=== PATIENT | male | born 1960 | race Caucasian/White ===

== ENCOUNTER 2024-12-29 10:46 | Emergency (ER) | payer OTHER, SELFPAY ==
--- NOTE | ~2024-12-29 | CT_ITS ---
Non-contrast CT scan of the Abdomen and Pelvis Clinical indication: Left inguinal pain Technique: 2.5 mm axial scans were obtained through the abdomen and pelvis without intravenous or or al contrast. Dose reduction technique was used on this scan by utilizing automated exposure control a nd iterative reconstruction technique. The dose-length product (DLP) was 684.85 mGy-cm. Findings: Images through the lung bases reveal 3 mm right lower lobe nodule (axial image 15). There is no evidence of renal or ureteral calculi. The kidneys and the ureters are nondilated. The liver, spleen, pancreas, gallbladder, and adrenals appear normal. There is no aortic aneurysm. There is no evidence of bowel obstruction. Images through the pelvis were performed. There is no evidence of ascites or lymphadenopathy. Urinary bladder unremarkable. No pelvic mass seen. No ascites. Impression: No significant abnormality. 3 mm right lower lobe pulmonary nodule is most likely benign. Consider one-year follow-up exam for a high-risk patient. Reviewed, dictated and finalized at [facility]. Impression: No significant abnormality. 3 mm right lower lobe pulmonary nodule is most likely benign. Consider one-year follow-up exam for a high-risk patient.
--- NOTE | ~2024-12-29 | US_ITS ---
Testicular ultrasound with doppler. Indication: Left testicular pain. Technique: Real-time sonography the scrotum was performed. Color flow Doppler and Doppler spectral an alysis were performed. Findings: The testes are homogeneous in echotexture bilaterally. There is no evidence of an intrates ticular mass. The right testis measures 2.3 x 1.6 x 2.5 cm and the left 2.1 x 1.1 x 2.4 cm. There is color-flow seen to both testes. Arterial and venous spectral waveforms are seen in both testes. There is no sonographic evidence of torsion. The head of the epididymis is visualized bilaterally and is within normal limits. Suggestion of increased color-flow and soft tissues about the left testicle and left epididymis without discrete mass or fluid collection. Impression: Suggestion of hyperemia in the soft tissues about the left testicle and left epididymis without fluid collection or discrete mass, nonspecific. No distinct evidence for orchitis/epididymitis. No testicular mass or torsion. Reviewed, dictated and finalized at location . Impression: Suggestion of hyperemia in the soft tissues about the left testicle and left ep ididymis without fluid collection or discrete mass, nonspecific. No distinct ev idence for orchitis/epididymitis. No testicular mass or torsion.
[2024-12-29 11:05] VITALS: BP 142/90; PULSE 64; RESP 16; TEMP 36.6; O2SAT 98
--- NOTE | 2024-12-29 11:32 | ED.GENADULT ---
HPI - General Adult General Chief complaint: Urogenital-Male Stated complaint: L testicle pain Time Seen by Provider: 12/29/24 10:59 History of Present Illness HPI narrative: Patient is a 64-year-old gentleman who presents emergency department chief complaint of left testicle pain. Patient reports for the last several days he has had discomfort in his left testicle reports there may be a little bit of swelling reports that it does radiate into the left lower quadrant Related Data Home Medications ?Medication ?Instructions ?Recorded ?Confirmed ?Last Taken ?Type dietary supplement cap PO 02/22/20 Unknown History nutritional supplement-fiber oral 2 each PO DAILY 02/22/20 Unknown History liquid omega 3,5,6,7,9 combination no.1 cap PO 02/22/20 Unknown History 700 mg-salmon oil 1,500 mg capsule (Complete Bondurant) Allergies Allergy/AdvReac Type Severity Reaction Status Date / Time No Known Allergies Allergy Mild Verified 12/29/24 10:46 Review of Systems Review of Systems: A 10 system review of systems was completed on the patient and is negative except for what is stated in the HPI. Nursing and ancillary documentation was reviewed. [facility] Past Medical History Medical History (Updated 12/29/24 @ 13:10 by Luigi Belle MD) Biceps muscle tear (~2010) right arm Dyslipidemia Abdominal wall lump Hx of colonic polyp (~2017) Surgical History Surgical History History of tonsillectomy and adenoidectomy Family History Family History Other Asthma Diabetes mellitus Hypertension Social History Social History Smoking status: Never smoker Second hand tobacco smoke exposure: No Alcohol intake: current Alcohol use details: consumes 3 beers weekly Substance use: never Substance use type: does not use Gender identity (if verbalized by the patient): Male Exam Narrative: GENERAL: Well-appearing, well-nourished, and in no acute distress. HEAD: Normocephalic, atraumatic. EYES: PERRLA and EOMI. ENT: Nares clear, no rhinorrhea or epistaxis. Mucous membranes moist. NECK: Supple. CHEST: Clear to auscultation. No respiratory distress. HEART: Regular rate and rhythm. No murmur heard. Normal peripheral pulses. ABDOMEN: Soft, nontender, nondistended, normal active bowel sounds. : Slight tenderness to palpation in the left testicle EXTREMITIES: Normal range of motion. No edema. SKIN: Warm, dry, no rash. NEURO: No focal deficits. Alert and oriented x3. PSYCH: Normal mood and affect. Course Vital Signs Vital signs: Vital Signs Temperature 36.6 C 12/29/24 11:05 Pulse Rate 64 12/29/24 11:05 Respiratory Rate 16 12/29/24 11:05 Blood Pressure 142/90 H 12/29/24 11:05 Pulse Oximetry 98 12/29/24 11:05 Oxygen Delivery Room Air 12/29/24 11:05 Temperature 36.6 C 12/29/24 11:05 Pulse Rate 64 12/29/24 11:05 Respiratory Rate 16 12/29/24 11:05 Blood Pressure 142/90 H 12/29/24 11:05 Pulse Oximetry 98 12/29/24 11:05 Oxygen Delivery Room Air 12/29/24 11:05 Medical Decision Making [facility] Narrative Medical decision making narrative: Differential diagnosis includes epididymal orchitis, testicular torsion, ureterolithiasis, hernia Ultrasound showed evidence of epididymal orchitis Laboratory studies were within normal limits CT scan showed no evidence of hernia or ureterolithiasis Patient is given 500 mg of Rocephin IM and will be started on Levaquin Vital Signs Vital Signs: Vital Signs Temperature 36.6 C 12/29/24 11:05 Pulse Rate 64 12/29/24 11:05 Respiratory Rate 16 12/29/24 11:05 Blood Pressure 142/90 H 12/29/24 11:05 Pulse Oximetry 98 12/29/24 11:05 Oxygen Delivery Room Air 12/29/24 11:05 Temperature 36.6 C 12/29/24 11:05 Pulse Rate 64 12/29/24 11:05 Respiratory Rate 16 12/29/24 11:05 Blood Pressure 142/90 H 12/29/24 11:05 Pulse Oximetry 98 12/29/24 11:05 Oxygen Delivery Room Air 12/29/24 11:05 Lab Data 12/29/24 11:23 12/29/24 11:23 Labs: Lab Results 05/01/25 Range/Units 11:23 WBC 7.2 (4.5-10.0) K/mm3 RBC 5.87 (4.6-6.20) M/mm3 Hgb 17.8 (14.0-18.0) g/dL Hct 52.1 H (42.0-52.0) % MCV 88.8 (80-100) fl MCH 30.3 (26-34) pg MCHC 34.2 (32-36) g/dl RDW 13.4 (11.5-14.5) % Plt Count 200 (150-375) k/mm3 MPV 8.9 (7.4-10.4) fl Immature Gran % (Auto) 0.1 (0-0.5) % Neut % (Auto) 70.7 (45.5-73.1) % Lymph % (Auto) 19.5 (18.3-44.2) % Amador % (Auto) 5.8 (2.6-8.5) % Eos % (Auto) 3.2 (0-4.4) % Baso % (Auto) 0.7 (0.2-1.2) % Lymph # (Auto) 1.41 (0.9-3.2) K/mm3 Amador # (Auto) 0.4 (0.1-0.6) K/mm3 Eos # (Auto) 0.2 (0-0.3) K/mm3 Baso # (Auto) 0.1 (0.0-0.1) K/mm3 Abs Immat Gran (auto) 0.01 (0.00-0.031) K/mm3 Absolute Neuts (auto) 5.1 (1.3-6.7) K/mm3 Absolute Nucleated RBC 0.000 (0.0-0.012) K/mm3 Nucleated RBC % 0.0 (0.0-0.2) % Sodium 139 (137-145) mmol/L Potassium 4.2 (3.4-5.0) mmol/L Chloride 101 (98-107) mmol/L Carbon Dioxide 32 H (22-30) mmol/L Anion Gap 6 (4-12) mmol/L BUN 14 (9-20) mg/dL Creatinine 1.19 (0.7-1.3) mg/dL Estim Creat Clear Calc 62 ml/min Estimated GFR > 60 (59 - ) Glucose 92 (65-110) mg/dL Lactic Acid 1.0 (0.7-2.0) mmol/L Calcium 9.2 (8.4-10.2) mg/dL Magnesium 2.2 (1.6-2.3) mg/dL Total Bilirubin 1.0 (0.2-1.3) mg/dL AST 28 (17-59) U/L ALT 24 (6-50) U/L Alkaline Phosphatase 61 (38-126) U/L Total Protein 7.0 (6.3-8.2) g/dL Albumin 4.4 (3.5-5.1) g/dL Lipase 93 (23-300) U/L Urine Color Yellow (Yellow) Urine Appearance Clear (Clear) Urine pH 6.5 (5.0-9.0) Ur Specific Holcomb 1.007 (1.001-1.035) Urine Protein Negative (Negative) mg/dL Urine Glucose (UA) Negative (Negative) mg/dL Urine Ketones Negative (Negative) mg/dL Ur Blood (Man) Negative (Negative) Urine Nitrate Negative (Negative) Urine Bilirubin Negative (Negative) Urine Urobilinogen 0.2 (<2.0) mg/dL Leukocyte Esterase Rfl Negative (Negative) SIMONA/UL Discharge Plan Discharge Clinical Impression: Acute epididymo-orchitis Patient Disposition: Home Condition: Stable Instructions: Antibiotic Form, Epididymo-Orchitis (ED) Patient Language: Eritrean Prescriptions: New levofloxacin 500 mg tablet 500 mg PO DAILY 10 Days Qty: 10 0RF No Action Complete Bondurant 700-1,500 mg-mg capsule PO Rx Instructions: 1725mg total-omega, 1100mg omgeg-3s, 300mg Levagen nutritional supplement-fiber Liquid 2 each PO DAILY Rx Instructions: Orchard blend, garden blend, wright blend- 2 tablets once daily dietary supplement Capsule PO Rx Instructions: Slimvance, once daily simvastatin 10 mg tablet 10 mg PO DAILY Qty: 90 0RF methylprednisolone [Medrol (Alejandro)] 4 mg tablets,dose pack See Rx Instructions PO PER PKG DIR Qty: 21 0RF Rx Instructions: PO PER PKG DIR triamcinolone acetonide 0.5 % cream 1 applic topical BID Qty: 15 0RF Follow-up/Referrals: Dariana Rutledge MD [Primary Care Provider] - Oscar Munson MD [Physician] - Time of Disposition: 13:11
[2024-12-29 11:33] LABS: Basophils Absolute Auto 0.1 K/mm3 (0.0-0.1); Basophils Percent Auto 0.7 % (0.2-1.2); Eosinophils Absolute Auto 0.2 K/mm3 (0-0.3); Eosinophils Percent Auto 3.2 % (0-4.4); Hematocrit 52.1 % (42.0-52.0); Hemoglobin 17.8 g/dL (14.0-18.0); Immature Granulocyte Absolute 0.01 K/mm3 (0.00-0.031); Immature Granulocyte Percent A 0.1 % (0-0.5); Lymphocytes Absolute Auto 1.41 K/mm3 (0.9-3.2); Lymphocytes Percent Auto 19.5 % (18.3-44.2); Mean Corpuscular HGB Conc 34.2 g/dl (32-36); Mean Corpuscular Hemoglobin 30.3 pg (26-34); Mean Corpuscular Volume 88.8 fl (80-100); Mean Platelet Volume 8.9 fl (7.4-10.4); Monocytes Absolute Auto 0.4 K/mm3 (0.1-0.6); Monocytes Percent Auto 5.8 % (2.6-8.5); Neutrophils Absolute Auto 5.1 K/mm3 (1.3-6.7); Neutrophils Percent Auto 70.7 % (45.5-73.1); Platelet Count Result 200 k/mm3 (150-375); Red Blood Count 5.87 M/mm3 (4.6-6.20); Red Cell Distribution Width 13.4 % (11.5-14.5); White Blood Count 7.2 K/mm3 (4.5-10.0)
[2024-12-29 11:41] LABS: Add Urine Microscopic? NO; Appearance Urine Clear (Clear); Bilirubin Urine Negative (Negative); Blood Urine Negative (Negative); Color Urine Yellow (Yellow); Glucose Urine UA Negative (Negative); Ketones Urine Negative (Negative); Leukocyte Esterase Ur Negative LEU/UL (Negative); Nitrate Urine Negative (Negative); Protein Urine Negative (Negative); Specific Grav Ur 1.007 (1.001-1.035); Urobilinogen Urine 0.2 mg/dL (<2.0); pH Urine 6.5 (5.0-9.0)
[2024-12-29 11:55] LABS: Alanine Aminotransferase 24 U/L (6-50); Albumin Level 4.4 g/dL (3.5-5.1); Alkaline Phosphatase 61 U/L (38-126); Anion Gap 6 mmol/L (4-12); Aspartate Amino Transferase 28 U/L (17-59); Blood Urea Nitrogen 14 mg/dL (9-20); Calcium 9.2 mg/dL (8.4-10.2); Carbon Dioxide 32 mmol/L (22-30); Chloride 101 mmol/L (98-107); Estimated CRCL calculation 62 ml/min; Estimated Glomerular Filt Rate > 60; Glucose 92 mg/dL (65-110); Lipase 93 U/L (23-300); Magnesium 2.2 mg/dL (1.6-2.3); Potassium 4.2 mmol/L (3.4-5.0); Sodium 139 mmol/L (137-145)
[2024-12-29] MEDS: cefTRIAXone 1 GM VIAL 0.5 GM IM (13:16)
[2024-12-29] MEDS: LIDOCAINE 1% LOCAL INJ 10 ML VIAL (13:17)
[2024-12-29 13:23] VITALS: BP 140/86; PULSE 66; RESP 18; O2SAT 98
== END 2024-12-29 13:34 | disposition home or self-care (01) ==
PROVIDERS: Emergency Provider Emergency Medicine; PCP Family Medicine
DX: N45.3 Epididymo-orchitis (principal); E78.5 Hyperlipidemia, unspecified; Z86.0100 Personal history of colon polyps, unspecified; Z79.899 Other long term (current) drug therapy
CPT/HCPCS: 36415; 74176; 76870; 80053; 81003; 83605; 83690; 83735; 85025; 93976; 96372; 99284; J0696; J2003

== ENCOUNTER 2025-08-08 14:20 | Outpatient (CLI) | payer OTHER, SELFPAY ==
[2025-08-08 15:03] LABS: Hematocrit 44.3 % (42.0-52.0); Hemoglobin 15.2 g/dL (14.0-18.0); Immature Granulocyte Percent A 0.3 % (0-0.5); Lymphocytes Absolute Auto 1.51 K/mm3 (0.9-3.2); Mean Corpuscular HGB Conc 34.3 g/dl (32-36); Mean Corpuscular Hemoglobin 30.3 pg (26-34); Mean Corpuscular Volume 88.2 fl (80-100); Nucleated Red Blood Cells Absolute Auto 0.000 K/mm3 (0.0-0.012); Nucleated Red Blood Cells Perc 0.0 % (0.0-0.2); Platelet Count Result 206 k/mm3 (150-375); Red Blood Count 5.02 M/mm3 (4.6-6.20); White Blood Count 7.2 K/mm3 (4.5-10.0)
== END 2025-08-08 14:21 | disposition home or self-care (01) ==
LOC: ANHSURGERY 14:28
PROVIDERS: PCP Nurse Practitioner Family; Visit Provider Surgery
DX: M85.612 Other cyst of bone, left shoulder (principal)
CPT/HCPCS: 36415; 85025

== ENCOUNTER 2025-08-09 02:06 | Day surgery (SDC) | payer OTHER, SELFPAY ==
[2025-08-08 09:29] VITALS: BMI 30.3
--- NOTE | 2025-08-08 09:46 | PC.NURSE ---
[facility] has started construction of its new state of the art ER which will open Spring 2026. With this, we anticipate parking may be a challenge for some our surgical patients and families. Parking spaces are limited but are available for all Surgical, obstetrics, and ER patients sharing this lot. If you arrive and find you are having a hard time finding a parking space, please note that we understand the challenges, please drive around the hospital and park near Hospital Entrance 1. When you enter this entrance, you can ask a volunteer to direct or take you back to the surgical waiting area to check in. We appreciate everyone?s understanding of these expected challenges while we build for your future. Report to the Outpatient Waiting Room, entrance under the green pavilion located off [address], at time ___8:30AM___ on date _08/09/25____. Planned Procedure Time: __10:30AM .? Time changes happen often and if your time is changed the preop area will call you the afternoon before. - You and your visitor will be asked to self-screen and do not enter if you have any COVID symptoms. Please call surgeon if you need to reschedule. - A mask is optional within the hospital at this time. Patients may have clear liquids (water, carbonated beverages, clear teas, apple juice) until 3 hours prior to surgery (7:30AM) with a maximum of 20 ounces. - No food from midnight until time of surgery and no smoking, or chewing tobacco (or any form of nicotine). No chewing gum, candy or mints. Take only the following medications with a SIP of water on the morning of surgery: NONE DO NOT STOP ANY OF YOUR OTHER PRESCRIPTION MEDICATIONS PRIOR TO SURGERY EXCEPT THE FOLLOWING Hold all vitamins and supplements for 3 days per anesthesiologist.--LAST DOSE STARTING NOW Medications to discontinue per physician ___HOLD NAPROXEN PER DR NOBLES Date to take last dose Please no make-up, nail albanian, hairspray, perfume, deodorant, or body powder the day of surgery.? No jewelry (including any body piercings) or valuables the day of surgery, leave them at home.? Please take a shower or bath the night before, or the morning of, surgery with an antibacterial soap.? Wear comfortable, loose fitting clothing.? Children are encouraged to wear pajamas. - Jewelry must be removed prior to entering the operating room.? Rings and piercings that are not removed may be cut off. - The hospital will not accept responsibility for valuables.? - Please leave all valuables, including medications, at home the day of surgery. If you are going home after surgery, a licensed truck driver supervisor must drive you home.? - NO public transportation without another adult if you receive anesthesia. - We recommend that an adult stay with you for 24 hours following discharge. - We also recommend that you do not drive, make important decision, drink alcoholic beverages, or take any drugs that were not prescribed by your health care provider for at least 24 hours after your discharge time. Follow any additional instructions given to you from your surgeon. Telephone instructions given to ____PATIENT and asked if any additional questions and then verbalized understanding. Patient advised to call surgeon office or pre surgery nurse liaison [phone] if any additional questions.
--- NOTE | 2025-08-09 08:41 | WPDHPUPDATE1 ---
History and Physical Update Update Date/Time: 08/09/25 08:41 History and Physical has been reviewed, including an updated exam of the patient. There are NO changes in the patient's condition. Risks, benefits, and alternatives have been discussed and questions answered. Patient agrees to proceed with procedure.
[2025-08-09 09:00] VITALS: BP 130/89; PULSE 52; RESP 16; TEMP 36.1; O2SAT 99
[2025-08-09] MEDS: LACTATED RINGERS 1,000 ML 30 ML IV CONT (09:00)
--- NOTE | 2025-08-09 09:58 | WPDANESEPPF ---
Anes - Initial Pre Proc Eval Procedure: Operation Date: 08/09/25 10:30 Proposed Procedures p Excision Skin Cyst Left Clavicle - Luther Buchanan MD Date/Time: 08/09/25 09:58 Surgeon: Luther Buchanan MD Pre Op Diagnosis: skin cyst left clavicle Patient Data Age: 65 Gender: M Height: 1.82 m Weight: 101.1 kg Last Vital Signs Temp 36.1 C L 08/09/25 09:00 Pulse 52 L 08/09/25 09:00 Resp 16 08/09/25 09:00 BP 130/89 08/09/25 09:00 Pulse Ox 99 08/09/25 09:00 O2 Del Method Room Air 08/09/25 09:00 Allergies Allergy/AdvReac Type Severity Reaction Status Date / Time poison oak extract Allergy Severe Hives Verified 08/09/25 09:30 poison sumac extract Allergy Severe Hives Verified 08/09/25 09:30 poison ej extract AdvReac Severe Hives Verified 08/09/25 09:30 Home Medications ?Medication ?Instructions ?Recorded ?Confirmed ?Type dietary supplement 1 cap PO DAILY 02/22/20 08/08/25 History ascorbic acid (vitamin C) 1,000 mg 1,000 mg PO DAILY 04/13/25 08/08/25 History capsule cholecalciferol (vitamin D3) 50 50 mcg PO DAILY 04/13/25 08/08/25 History mcg (2,000 unit) capsule creatine monohydrate 5,000 mg oral 5,000 mg PO DAILY 04/13/25 08/08/25 History powder packet fexofenadine 180 mg tablet 180 mg PO DAILY 04/13/25 08/08/25 History (Natalie Allergy) finasteride 5 mg tablet 5 mg PO DAILY 04/13/25 08/08/25 History fluticasone propionate 50 1 spray intranasal DAILY PRN nasal 04/13/25 08/08/25 History mcg/actuation nasal congestion spray,suspension (Flonase Allergy Relief) magnesium oxide 250 mg PO DAILY 04/13/25 08/08/25 History naproxen sodium 220 mg capsule 440 mg PO BID PRN pain 04/13/25 08/08/25 History (Aleve) potassium citrate 99 mg capsule 99 mg PO 2XW 04/13/25 08/08/25 History vitamin B complex 1 cap PO DAILY 04/13/25 08/08/25 History atorvastatin 20 mg tablet (Lipitor) 20 mg PO QHS #90 tabs 06/22/25 08/08/25 Rx Patient hx anesthesia problems: none Family hx anesthesia problems: none Results Review: All pre-operative results and documents have been reviewed as part of the pre-operative evaluation. [facility] Past Medical History Medical History BPH (benign prostatic hyperplasia) Biceps muscle tear (~2010) right arm Dyslipidemia Hx of colonic polyp (~2017) Surgical History Surgical History History of tonsillectomy and adenoidectomy Family History Family History Other Asthma Diabetes mellitus Hypertension Social History Social History Smoking status: Never smoker Tobacco type: smokeless tobacco Smokeless tobacco user: chewing tobacco Second hand tobacco smoke exposure: No Additional smoking assessment comments: chew #/day 2 Alcohol intake: current Alcohol use details: consumes 3 beers weekly Substance use: never Substance use type: does not use Lack of Transportation: No Lack of Food: Never True Current Housing: I Have Housing Concerned About Future Housing: No Difficulty Paying Gas/Electric Bills: No Difficulty Paying for Meds: No Currently Unemployed: No Education: High School Diploma/GED Difficulty w/ Childcare or Family Care: No Living arrangements: with family Occupation/Education: occupation 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 Informed Consent: The patient's anesthetic plan and its attendant risks and benefits were discussed with the patient/family/POA. Questions were solicited and answers provided to the satisfaction of the patient/family/POA.
[2025-08-09] MEDS: ceFAZolin 2 GM in SODIUM CHLORIDE 0.9% IV 50 ML 100 ML IVPB (10:10)
[2025-08-09] MEDS: BUPIVACAINE/EPINEPHRINE 0.5% 50 ML VIAL 30 ML INFILTRATE (10:22)
--- NOTE | 2025-08-09 10:26 | S_PTH ---
PATIENT: Estuardo Dudley LOC: [facility] U#:[id number] AGE/SX: 65/M ROOM: RE08/09/[address]: Luther Buchanan MD : 1960 BED: DIS: 08/09/2025 SPEC #: [id number] RECD: 08/09/25 11:22 STATUS: MATRHA REQ #: [id number] SHANI: 08/09/25 10:[address]: Luther Buchanan DEPT: [facility] Surgical RECD BY: Shireen Howe MLT, ([facility]) ENTERED: 08/09/25 11:22 SP TYPE: Surgical OTHR DR: Carlita Shelby APRN Tissues: A - Cyst Procedures: Hematoxylin and Eosin Stain Gross and Microscopic Level 4
[2025-08-09 10:39] VITALS: BP 121/69; PULSE 52; RESP 12; O2SAT 95
--- NOTE | 2025-08-09 10:54 | W.PM.PROC2 ---
Procedure Note - Detailed Date of Procedure 08/09/25 Pre-op Diagnosis skin cyst left clavicle Post-op Diagnosis Same Procedure Performed Excision 2 cm skin cyst left upper chest with 1 mm margins, 2.2 cm excision. 8.5 cm layered closure Surgeon Luther Buchanan MD Associate Director Of Nursing Marybeth Samson [facility] Anesthesia General (G IV S) and Local Indications Patient has an enlarging somewhat exophytic skin lesion on the left upper chest, directly overlying his left clavicle. It appears to be a skin cyst. It has been bothersome as rubs on clothing. He is taken to surgery now for excision Findings Skin cyst Description of Procedure Patient was checked in the preoperative holding area. The proposed transversely oriented ellipse was drawn on the skin. He was then taken to surgery and placed in a supine position. Anesthesia was introduced. Prep and drape was carried out. Local anesthetic was infiltrated over the anticipated elliptical excision site. Incision of the skin was then made. This was then continued through into the subcutaneous. We then excised the full-thickness skin including the cyst sharply. I then measured the cyst which was 2 cm in longest dimension. 1 mm margins had been taken. The wound was made hemostatic with the cautery. The wound measured 8.5 cm in length. The subcu was closed with 3-0 Vicryl suture. The skin was loosely approximated with subcuticular 3-0 Vicryl suture. The skin was then finally closed with running 4-0 Monocryl skin suture. The wound was dressed with Exofin surgical adhesive. Patient was then awakened and taken to the step-down area in good condition. Sponge and needle counts were correct x2. Estimated Blood Loss -5 Drains No Packing No Pathology Yes (Skin cyst left upper chest) Complications None Condition Stable Disposition PACU [facility] Billing Surgery - Charge Forward: Surgery Billing (Excision 2 cm skin cyst left upper chest with 1 mm margins, 2.2 cm excision. 8.5 cm layered closure)
[2025-08-09 11:09] VITALS: BP 122/68; PULSE 48
== END 2025-08-09 11:35 | disposition home or self-care (01) ==
PROVIDERS: PCP Nurse Practitioner Family; Visit Provider Surgery
PROC: (CPT 11403; principal; 2025-08-09 10:30)
DX: L72.0 Epidermal cyst (principal); G89.18 Other acute postprocedural pain; E78.5 Hyperlipidemia, unspecified; N40.0 Benign prostatic hyperplasia without lower urinary tract symptoms; F17.220 Nicotine dependence, chewing tobacco, uncomplicated; E66.9 Obesity, unspecified; Z68.30 Body mass index [BMI] 30.0-30.9, adult; Z79.1 Long term (current) use of non-steroidal anti-inflammatories (NSAID); Z98.890 Other specified postprocedural states; Z86.0100 Personal history of colon polyps, unspecified
CPT/HCPCS: 11403; 12034; 88305; J0690; J2250; J2270; J2704; J7120